=== PATIENT | male | born 1950 | race Caucasian/White ===

== ENCOUNTER 2017-12-06 09:22 | Emergency (ER) | payer OTHER ==
[2017-12-06 09:40] VITALS: BP 148/85; PULSE 69; TEMP 98.4; BMI 25.4
--- NOTE | 2017-12-06 10:05 | PDOC ---
History of Present Illness - General Chief Complaint: Sore Throat Stated Complaint: FEVER Time Seen by Provider: 12/06/17 09:58 History Source: Patient Exam Limitations: No Limitations - History of Present Illness Initial Comments: CHIEF COMPLAINT: 67 y/o afebrile male with PMH hypothyroidism, HTN c/o sore throat x 3-4 weeks. HISTORY OF PRESENT ILLNESS: He denies fever, cough, difficulty swallowing, decrease in PO intake. He has not taken anything for pain. He has not seen his PMD, Dr. Zheng. Vital signs on arrival are within normal limits. REVIEW OF SYSTEMS: GENERAL/CONSTITUTIONAL: No fever/chills. No weakness. No weight change. HEAD, EYES, EARS, NOSE AND THROAT: No change in vision. No ear pain or discharge. +sore throat. MUSCULOSKELETAL: No joint or muscle swelling or pain. No neck or back pain. SKIN: No rash or easy bruising. NEUROLOGIC: No headache, vertigo, loss of consciousness, or loss of sensation. PHYSICAL EXAM: GENERAL: The patient is awake, alert, and fully oriented, in no acute distress. He is well appearing and ambulatory. HEAD: Normal with no signs of trauma. NECK: No cervical lymphadenopathy. ENT: Pupils equal, round and reactive to light, extraocular movements intact, sclera anicteric, conjunctiva clear. Posterior pharygeal erythema. No tonsilar edema or exudate. Uvula midline. EXTREMITIES: Normal range of motion, no edema. NEUROLOGICAL: Normal speech, normal gait. CN II-XII grossly intact. SKIN: Warm, dry, normal turgor, no rashes or lesions noted. Past History - Past Medical History Allergies/Adverse Reactions: Allergies Allergy/AdvReac Type Severity Reaction Status Date / Time No Known Allergies Allergy Verified 12/06/17 09:36 Home Medications: Ambulatory Orders Lisinopril 20 mg PO DAILY #30 tablet 08/26/13 Amlodipine Besylate [Norvasc -] 10 mg PO DAILY 11/26/13 Levothyroxine [Synthroid -] 75 mcg PO DAILY 11/26/13 Ciprofloxacin [Cipro -] 500 mg PO Q12H #10 tablet 12/07/13 Ibuprofen [Motrin -] 600 mg PO TID PRN #21 tablet 12/07/13 Oxycodone HCl/Acetaminophen [Percocet 5-325 mg Tablet -] 1 tab PO Q6H PRN #10 tablet 12/07/13 Tamsulosin HCl [Flomax] 0.4 mg PO HS #10 capsule 12/07/13 Dicyclomine HCl [Bentyl -] 20 mg PO Q8H PRN #21 tablet 08/17/17 Cetirizine HCl [Zyrtec -] 10 mg PO DAILY #7 tablet 12/06/17 COPD: No HTN: Yes Hypercholesterolemia: Yes Psychiatric Problems: Yes (DEPRESSION) Thyroid Disease: Yes (hypo) - Immunization History Immunization Up to Date: No - Suicide/Smoking/Psychosocial Hx Smoking History: Never smoked Have you smoked in the past 12 months: No Hx Alcohol Use: No Drug/Substance Use Hx: No *Physical Exam - Vital Signs Last Vital Signs Temp Pulse Resp BP Pulse Ox 98.4 F 69 18 148/85 97 12/06/17 09:37 12/06/17 09:37 12/06/17 09:37 12/06/17 09:37 12/06/17 09:37 Medical Decision Making - Medical Decision Making A/P: 67 y/o male with most likely seasonal allergies with sore throat. Will send rapid strep. Rapid strep - negative Gave patient his results. Suggested he take daily zyrtec and sent rx for 1 week Patient encouraged to f/u with Dr. Zheng. The patient verbalizes understanding of all instructions, has no further questions and is awaiting discharge. *DC/Admit/Observation/Transfer Diagnosis at time of Disposition: Pharyngitis Qualifiers: Pharyngitis/tonsillitis etiology: unspecified etiology Qualified Code(s): J02.9 - Acute pharyngitis, unspecified - Discharge Dispostion Disposition: HOME Condition at time of disposition: Good - Prescriptions Prescriptions: Cetirizine HCl [Zyrtec -] 10 mg PO DAILY #7 tablet - Referrals Referrals: Lalo Zheng [Primary Care Provider] - Call tomorrow - Patient Instructions Printed Discharge Instructions: Sore Throat Additional Instructions: Discharge Instructions: -You have a sore throat, most likely caused by seasonal allergies -You do not have an infection in your throat -A prescription for allergy medication has been sent to your pharmacy -Please call Dr. Zheng on Thursday and schedule a follow up appointment Instrucciones de descarga: -Tiene dolor de garganta, muy probablemente causado por alergias estacionales -No tienes chitra infeccin en la garganta. -Chitra receta para medicamentos para la alergia grover sido enviada a [facility] -Por favor, llame al Dr. Zheng el mac y programe chitra neto de seguimiento Print Language: [place] - Post Discharge Activity
== END 2017-12-06 10:51 | disposition home or self-care (01) ==
LOC: JERFT 09:22
DX: J02.9 Acute pharyngitis, unspecified (principal); J30.9 Allergic rhinitis, unspecified; I10 Essential (primary) hypertension; E03.9 Hypothyroidism, unspecified; F41.9 Anxiety disorder, unspecified
CPT/HCPCS: 87070; 87430; 99281-25

== ENCOUNTER 2018-07-04 10:03 | Emergency (ER) | payer OTHER ==
[2018-07-04 10:08] VITALS: BP 131/82; PULSE 79; TEMP 97.8; BMI 24.2
[2018-07-04] MEDS ORDERED: IBUPROFEN 400 MG TABLET (FP) PO ONE ×2 (10:40→10:44)
--- NOTE | 2018-07-04 10:45 | PDOC ---
History of Present Illness - General Chief Complaint: Sore Throat Stated Complaint: COLD SYMPTOMS / THROAT PAIN Time Seen by Provider: 07/04/18 10:28 History Source: Patient - History of Present Illness Timing/Duration: reports: other Severity: reports: mild Past History - Past Medical History Allergies/Adverse Reactions: Allergies Allergy/AdvReac Type Severity Reaction Status Date / Time No Known Allergies Allergy Verified 07/04/18 10:08 Home Medications: Ambulatory Orders Lisinopril 20 mg PO DAILY #30 tablet 08/26/13 Amlodipine Besylate [Norvasc -] 10 mg PO DAILY 11/26/13 Levothyroxine [Synthroid -] 75 mcg PO DAILY 11/26/13 Ciprofloxacin [Cipro -] 500 mg PO Q12H #10 tablet 12/07/13 Ibuprofen [Motrin -] 600 mg PO TID PRN #21 tablet 12/07/13 Oxycodone HCl/Acetaminophen [Percocet 5-325 mg Tablet -] 1 tab PO Q6H PRN #10 tablet 12/07/13 Tamsulosin HCl [Flomax] 0.4 mg PO HS #10 capsule 12/07/13 Dicyclomine HCl [Bentyl -] 20 mg PO Q8H PRN #21 tablet 08/17/17 Cetirizine HCl [Zyrtec -] 10 mg PO DAILY #7 tablet 12/06/17 COPD: No HTN: Yes Hypercholesterolemia: Yes Psychiatric Problems: Yes (DEPRESSION) Thyroid Disease: Yes (hypo) - Immunization History Immunization Up to Date: No - Suicide/Smoking/Psychosocial Hx Smoking History: Never smoked Have you smoked in the past 12 months: No Hx Alcohol Use: No Drug/Substance Use Hx: No Review of Systems - Review of Systems Constitutional: No: Chills, Fever HEENTM: Yes: Throat Pain. No: Ear Pain Respiratory: Yes: Cough. No: Shortness of Breath, Hemoptysis Cardiac (ROS): No: Chest Pain *Physical Exam - Vital Signs Last Vital Signs Temp Pulse Resp BP Pulse Ox 97.8 F 79 18 131/82 99 07/04/18 10:05 07/04/18 10:05 07/04/18 10:05 07/04/18 10:05 07/04/18 10:05 - Physical Exam General Appearance: Yes: Appropriately Dressed. No: Apparent Distress HEENT: positive: Normal ENT Inspection, Normal Voice. negative: Scleral Icterus (R), Scleral Icterus (L) Neck: positive: Supple Respiratory/Chest: positive: Lungs Clear, Normal Breath Sounds. negative: Respiratory Distress Cardiovascular: positive: Regular Rate, S1, S2 Integumentary: positive: Dry, Warm Neurologic: positive: Fully Oriented, Alert, Normal Mood/Affect Medical Decision Making - Medical Decision Making 07/04/18 10:44 67 yo M, h/o HTN, HLD, here w/ sore throat w/ dry cough x 4 days. No ear pain, sob, CP, f/c. Not taking anything for his sxs See exam M/l viral URI Exam unremarkable dc w/ supportive tx *DC/Admit/Observation/Transfer Diagnosis at time of Disposition: URI (upper respiratory infection) Qualifiers: URI type: unspecified viral URI Qualified Code(s): J06.9 - Acute upper respiratory infection, unspecified - Discharge Dispostion Disposition: HOME Condition at time of disposition: Good - Referrals Referrals: Lalo Zheng [Primary Care Provider] - - Patient Instructions Printed Discharge Instructions: DI for Viral Upper Respiratory Infection -- Adult - Post Discharge Activity
== END 2018-07-04 10:46 | disposition home or self-care (01) ==
LOC: JERFT 10:03
DX: J06.9 Acute upper respiratory infection, unspecified (principal); B97.89 Other viral agents as the cause of diseases classified elsewhere; I10 Essential (primary) hypertension; E78.00 Pure hypercholesterolemia, unspecified; E03.9 Hypothyroidism, unspecified; F32.9 Major depressive disorder, single episode, unspecified
CPT/HCPCS: 99281-25